=== PATIENT | male | born 1945 | race Caucasian/White ===

== ENCOUNTER → 2016-06-19 | Outpatient (CLI) | payer MEDICARE, OTHER ==
[~2016-06-19] MED LIST: ATENOLOL50 MG PO; AVODART0.5 MG PO; CEPHALEXIN500 M1 PO; CORDARONE200 MG/TAB PO; COUMADIN 5MG5 MG/TAB PO; EFFEXOR 75M75 MG/TAB PO; FIBER GUMMIES2.5 GM PO; FIBER TABLETS1 TAB PO; FLOMAX 0.40.4 MG/CAP PO; HYTRIN5 MG PO; KLONOPIN0.5 MG PO; LASIX 20MG TABL20 MG PO; LIPITOR 40MG TA40 MG PO; METAMUCIL1 PDR PO; METROGEL0.75% TP; MOBIC 7.5MG7.5 MG PO; MULTI VITAMINS1 TAB PO; NEURONTIN300 MG/CAP PO; NORCO 325 MG-7.1 TAB PO; PHENERGAN 25 TA25 MG PO; PRAVACHOL 40MG40 MG PO; PRAVASTATIN40 MG PO; PRISTIQ50 M1 PO; TENORMIN 5050 MG/TAB PO; TERAZOSIN HCL PO; ULTRAM 50MG TAB50 MG PO; ULTRAM100 MG PO; URECHOLINE 25MG25 MG PO; VIT C; ZESTRIL 5MG5 MG; ZESTRIL 5MG5 MG PO; [UNRECOGNIZED DRUG - OTHER] PO
== END ==
LOC: COL.RAD 11:07
DX: Z13.6 Encounter for screening for cardiovascular disorders (principal); Z87.891 Personal history of nicotine dependence

== ENCOUNTER 2016-08-25 07:00 | Day surgery (SDC) | payer MEDICARE, OTHER ==
[~2016-08-25] VITALS: Ht 167.6 cm; Wt 105.1 kg
[~2016-08-25 07:00] MED LIST changes: -FIBER GUMMIES2.5 GM PO; -NEURONTIN300 MG/CAP PO; -[UNRECOGNIZED DRUG - OTHER] PO
[2016-08-25 07:35] VITALS: BP 132/83; PULSE 61; TEMP 98.1
[2016-08-25] MEDS ORDERED: FLOMAX 0.40.4 MG/CAP PO (07:54)
[2016-08-25] MEDS ORDERED: NEURONTIN300 MG/CAP PO (07:58)
[2016-08-25] MEDS ORDERED: [UNRECOGNIZED DRUG - OTHER] PO (08:00)
[2016-08-25 09:17] VITALS: BP 97/55; PULSE 65
[2016-08-25 09:32] VITALS: BP 109/64; PULSE 66
[2016-08-25] MEDS ORDERED: FIBER GUMMIES2.5 GM PO (09:52)
[2016-08-25 09:57] VITALS: BP 104/67; PULSE 68
[2016-08-25 17:15] VITALS: BP 101/66; PULSE 73
== END 2016-08-25 10:25 | disposition home or self-care (01) ==
LOC: SDCO 07:00
DX: J20.9 Acute bronchitis, unspecified (principal); R04.89 Hemorrhage from other sites in respiratory passages; J38.3 Other diseases of vocal cords; R05 Cough; R06.02 Shortness of breath; Z87.891 Personal history of nicotine dependence; G47.33 Obstructive sleep apnea (adult) (pediatric); I10 Essential (primary) hypertension; Z79.899 Other long term (current) drug therapy; Z95.2 Presence of prosthetic heart valve
CPT/HCPCS: J0290; J2704; J7120

== ENCOUNTER 2016-09-12 09:00 | Outpatient (RCR) | payer MEDICARE, OTHER | END 2016-12-04 | disposition home or self-care (01) | LOC: WSST | DX: J38.3 Other diseases of vocal cords (principal) | CPT/HCPCS: G8996-GN; G8997-GN ==

== ENCOUNTER → 2016-09-12 | Outpatient (CLI) | payer MEDICARE, OTHER ==
[~2016-09-12] MED LIST changes: +FIBER GUMMIES2.5 GM PO; +NEURONTIN300 MG/CAP PO; +[UNRECOGNIZED DRUG - OTHER] PO
== END ==
LOC: COL.RAD 09:00
DX: J38.3 Other diseases of vocal cords (principal)
CPT/HCPCS: G8996-GN; G8997-GN; G8998-GN

== ENCOUNTER 2017-02-06 08:07 | Outpatient (RCR) | payer MEDICARE, OTHER | END 2017-05-07 | disposition home or self-care (01) | LOC: WSST | DX: R13.10 Dysphagia, unspecified (principal) | CPT/HCPCS: G8996-GN; G8997-GN ==

== ENCOUNTER → 2017-08-15 | Outpatient (CLI) | payer MEDICARE, OTHER | LOC: COL.RAD 10:30 | DX: K76.89 Other specified diseases of liver (principal); N28.1 Cyst of kidney, acquired ==

== ENCOUNTER 2018-07-10 12:43 | Outpatient (RCR) | payer OTHER | END 2018-09-24 15:29 | disposition home or self-care (01) | LOC: WSOH 12:43 | DX: S30.0XXA Contusion of lower back and pelvis, initial encounter (principal); S33.5XXA Sprain of ligaments of lumbar spine, initial encounter; W20.8XXA Other cause of strike by thrown, projected or falling object, initial encounter; Y93.89 Activity, other specified; Y99.0 Civilian activity done for income or pay; I10 Essential (primary) hypertension; I49.9 Cardiac arrhythmia, unspecified; E78.00 Pure hypercholesterolemia, unspecified; M19.90 Unspecified osteoarthritis, unspecified site; N41.9 Inflammatory disease of prostate, unspecified; F32.9 Major depressive disorder, single episode, unspecified; Z96.652 Presence of left artificial knee joint; Z95.2 Presence of prosthetic heart valve; Z79.899 Other long term (current) drug therapy ==

== ENCOUNTER → 2023-08-01 | Outpatient (CLI) | payer MEDICARE, OTHER | LOC: COL.VAS 12:09 | DX: I51.7 Cardiomegaly (principal); I36.1 Nonrheumatic tricuspid (valve) insufficiency; I34.0 Nonrheumatic mitral (valve) insufficiency; I35.1 Nonrheumatic aortic (valve) insufficiency; Z95.3 Presence of xenogenic heart valve ==